=== PATIENT | male | born 1945 | race Caucasian/White ===

== ENCOUNTER 2016-07-03 10:07 | Outpatient (CLI) | payer MEDICARE | END 2016-07-03 10:08 | disposition home or self-care (01) | DX: M50.30 Other cervical disc degeneration, unspecified cervical region (principal); M51.34 Other intervertebral disc degeneration, thoracic region; M47.892 Other spondylosis, cervical region ==

== ENCOUNTER 2016-07-18 15:43 | Outpatient (CLI) | payer MEDICARE | END 2016-07-18 15:44 | disposition home or self-care (01) | DX: M25.511 Pain in right shoulder (principal) ==

== ENCOUNTER 2016-10-05 13:52 | Emergency (ER) | payer MEDICARE ==
[2016-10-05 14:09] VITALS: BP 141/81
--- NOTE | 2016-10-05 16:15 | ED Physician Documentation ---
PD HPI BACK INJURY - Stated complaint Stated Complaint: BACK PX - History obtained from History obtained from: Patient - History of Present Illness Location: Left, Lower Type of injury: Twist (has been having some pain in low back and then when golfing felt an abrupt pain in the low back, with pain down left leg. Feeling of numbness in left lateral thigh down to anterolateral lower leg. No persistent weakness. He says his leg gave out once due to pain in back. No urinary symptoms. Talked with PMD on phone and referred to ED for MRI.) Timing - onset: How many days ago (few) Timing - duration: Days (few) Timing - details: Abrupt onset, Still present, Waxing and waning Quality: Pain, Spasm Associated symptoms: Numbness (single nerve distribution left thigh.). No: Fever, Weakness Similar symptoms before: Diagnosis (had similar on right years ago with discectomy done and improved symptoms completely.) Recently seen: Not recently seen Review of Systems Constitutional: denies: Fever, Chills Cardiac: denies: Chest pain / pressure, Palpitations Respiratory: denies: Dyspnea, Cough GI: denies: Abdominal Pain : denies: Dysuria, Frequency, Incontinent Skin: denies: Rash, Lesions Neurologic: reports: Numbness. denies: Focal weakness PD PAST MEDICAL HISTORY - Past Medical History Cardiovascular: None Musculoskeletal: Other (prior lumbar discectomy due to symptoms on the right. No ongoing symptoms. ) - Present Medications Home Medications: Ambulatory Orders Medication Instructions Recorded Confirmed Dexamethasone [Decadron] 4 mg PO DAILY #5 tablet 10/05/16 Methocarbamol [Robaxin] 500 mg PO Q6H PRN #25 tablet 10/05/16 - Allergies Allergies/Adverse Reactions: Allergies Allergy/AdvReac Type Severity Reaction Status Date / Time No Known Drug Allergies Allergy Verified 10/05/16 14:09 PD ED PE NORMAL - Vitals Vital signs reviewed: Yes - General General: Alert and oriented X 3, No acute distress, Well developed/nourished - Cardiac Cardiac: RRR, No murmur - Respiratory Respiratory: Clear bilaterally - Abdomen Abdomen: Soft, Non tender - Back Back: No CVA TTP, No spinal TTP (tender left lateral muscle in lower lumbar. ) - Derm Derm: Normal color, Warm and dry - Extremities Extremities: No tenderness to palpate, Normal ROM s pain - Neuro Neuro: Alert and oriented X 3, No motor deficit (dermatomal tsting in leg is nromal motor including dorsi and plantar flexion of foot. 2+ DTRs at knees. He has less sensation to touch lateral thigh and anterolateral lower leg to top of foot. He can tell sharp from dull there. ), Normal speech - Psych Psych: Normal mood, Normal affect Results - Vitals Vitals: Oxygen O2 Source Room air PD MEDICAL DECISION MAKING - ED course Complexity details: considered differential (Reportedly sent to ED by PMD for MRI due to back pain. He has single nerve distribution numbness but no weakness (he says his leg gave out once due to pain in back, but has normal motor exam and knee DTR at this time) and no caudal symptoms. MRI not available currently if were to want elective study. He does not really have indication for emergent study and so I don't see need for transfer. He can see PMD Saturday for further meds/PT. PMD can decide at that time if wants outpt study. ), d/w patient Departure - Departure Disposition: Home, Self Care Clinical Impression: Back pain Qualifiers: Back pain location: low back pain Chronicity: acute Back pain laterality: left Sciatica presence: with sciatica Sciatica laterality: sciatica of left side Qualified Code(s): M54.42 - Lumbago with sciatica, left side Condition: Stable Record reviewed to determine appropriate education?: Yes Instructions: ED Sciatica Follow-Up: Bam Ko MD [Primary Care Provider] - Prescriptions: Dexamethasone [Decadron] 4 mg PO DAILY #5 tablet Methocarbamol [Robaxin] 500 mg PO Q6H PRN #25 tablet PRN Reason: Spasms Comments: It does sound like there is some impingement on 1 of the lumbar nerves. However it does not necessarily need an emergent MRI. We would try some anti- inflammatories, muscle relaxants, pain medicine for several days. Follow-up with Dr. Ko Saturday as planned. He might be able to arrange an outpatient MRI on an urgent basis. Medications and physical therapy are often first-line treatment and see if things improve. Return if worsening pain, more general area of numbness or weakness, bowel or bladder difficulties, other concerns. Discharge Date/Time: 10/05/16 17:28
[2016-10-05] MEDS ORDERED: METHOCARBAMOL 500 MG TABLET PO STA (17:00)
[2016-10-05] MEDS ORDERED: oxyCOD/ACETAMIN 5 MG/325 MG TABLET PO STA (17:00)
[2016-10-05] MEDS ORDERED: DEXAMETHASONE 10 MG/ML VIAL PO STA (17:00)
[2016-10-05] MEDS ORDERED: oxyCOD/ACETAMIN 5 MG/325 MG TABLET PO ONE (17:11)
[2016-10-05] MEDS ORDERED: DEXAMETHASONE 10 MG/ML VIAL ONE (17:11)
[2016-10-05] MEDS ORDERED: METHOCARBAMOL 500 MG TABLET PO ONE (17:12)
[2016-10-05] MEDS ORDERED: CHERRY SYRUP 10 ML UDC PO ONE (17:12)
== END 2016-10-05 17:28 | disposition home or self-care (01) ==
LOC: ED 13:52
DX: M54.42 Lumbago with sciatica, left side (principal)
CPT/HCPCS: 99283; A9270

== ENCOUNTER 2016-10-13 14:43 | Outpatient (CLI) | payer MEDICARE ==
--- NOTE | 2016-10-15 09:58 | MRI Report ---
EXAM: MRI LUMBAR SPINE WITHOUT CONTRAST EXAM DATE: 10/13/2016 03:19 PM. CLINICAL HISTORY: Lumbar radiculopathy. Patient is an avid golfer. "Tweaked lumbar spine" one week ag o. Pain radiating into the left leg. History of surgery 10 years ago, L4-L5? COMPARISON: Lumbar spine plain films 10/31/2015. TECHNIQUE: Multiplanar, multisequence T1-weighted and fluid-sensitive sequences of the lumbar spine f rom T12 to S1 without contrast. Other: None. FINDINGS: Spinal Cord: The conus terminates at L1. The conus medullaris is unremarkable. Crowding of cauda equi na nerve roots is seen in the mid lumbar thecal sac. Alignment: Normal. No scoliosis or spondylolisthesis. Bone Marrow: Five [id number] lumbar vertebral bodies are assumed. No gross fractures or bone les ions. No bone marrow edema. Note is made of hemangioma anteriorly in the L1 vertebral body. Disk Levels/Facets: T12-L1: Unremarkable on sagittal series. Mild anterior osteophyte formation. L1-L2: Evaluated on sagittal series. Patchy diskogenic endplate signal change is seen posteriorly in the L2 superior endplate. Mild anterior osteophyte formation is seen. No stenosis. L2-L3: Minimal loss of disk space height is seen. Mild lateral and ventral disk bulge is seen. Mild a nterior osteophyte formation is seen. No stenosis. L3-L4: Mild degenerative facet change is seen bilaterally. T2 hypointense disk signal is seen. Mild c ircumferential disk bulge is seen. Lobular left paracentral disk herniation with inferior extrusion i s seen. This measures up to 16 x 7 x 12 mm. This fills the left L4 lateral recess and extends to the superior foramen, with marked stenosis and mass effect on descending left L4 nerve root. Effacement o f the thecal sac with crowding of cauda equina nerve roots is seen. Mild canal stenosis is present. L4-L5: Postoperative change from right-sided laminectomy and partial facetectomy is seen. Moderate de generative facet change is seen bilaterally. Mild loss of disk space height is seen. Mild circumferen tial disk bulge is noted. Effacement of the thecal sac is seen without canal stenosis. Mild effacemen t of descending right L5 nerve root is seen with mild right lateral recess stenosis. L5-S1: Mild degenerative facet change is seen. Moderate loss of disk space height is seen. Mild to mo derate lateral protrusion of disk/osteophyte complex is seen bilaterally. No stenosis. Musculature: Normal. No edema or fatty atrophy. Other: The partially visualized retroperitoneum is unremarkable. IMPRESSION: 1. Spondylosis throughout the lumbar spine. 2. L3-L4: Left paracentral disk herniation with inferior extrusion. Marked left lateral recess stenos is is seen with mass effect on descending left L4 nerve root. Mild canal stenosis. 2. L4-L5: Postoperative change from right-sided laminectomy. Spondylosis. Right mild lateral recess s tenosis with mass effect on descending right L5 nerve root. Comment: The following findings are so common in adults without low back pain that while we report th eir presence, they must be interpreted with caution and in the context of the clinical situation. (Re madai Roa et al, Spine 2001) Prevalence of findings in patients without low back pain: Disk degeneration (any evidence): 92% Disk desiccation/T2 signal loss: 83% Disk height loss: 56% Disk bulge: 64% Disk protrusion: 32% Annular tear/high intensity zone: 38% [facility] Referring Provider Line: [phone] SITE ID: [id number]
== END 2016-10-13 14:44 | disposition home or self-care (01) ==
LOC: DI 14:43
PROVIDERS: ATTEND Internal Medicine
DX: M51.36 Other intervertebral disc degeneration, lumbar region (principal); M51.26 Other intervertebral disc displacement, lumbar region; M47.896 Other spondylosis, lumbar region; M48.06 Spinal stenosis, lumbar region
CPT/HCPCS: 72148

== ENCOUNTER 2016-10-17 09:36 | Outpatient (CLI) | payer MEDICARE ==
[2016-10-17 19:00] LABS: CHOL/HDL RATIO 4.4 (<5.0); CHOLESTEROL 210 mg/dL; GLUCOSE 113 mg/dL (70-100); HDL CHOLESTEROL 48 mg/dL; LDL/HDL RATIO 2.7 (<3.6); TRIGLYCERIDES 170 mg/dL; VLDL CHOLESTEROL 34 mg/dL
== END 2016-10-17 09:37 | disposition home or self-care (01) ==
LOC: LAB.F 09:36
PROVIDERS: ATTEND Internal Medicine
DX: R10.9 Unspecified abdominal pain (principal); M54.9 Dorsalgia, unspecified; R07.9 Chest pain, unspecified; K21.9 Gastro-esophageal reflux disease without esophagitis; S92.009 Unspecified fracture of unspecified calcaneus; M25.552 Pain in left hip; M25.551 Pain in right hip; R73.01 Impaired fasting glucose; N52.9 Male erectile dysfunction, unspecified; R86.9 Unspecified abnormal finding in specimens from male genital organs; Z86.010 Personal history of colon polyps; N50.82 Scrotal pain; Z12.11 Encounter for screening for malignant neoplasm of colon
CPT/HCPCS: 36415; 80061; 82947

== ENCOUNTER 2016-12-07 12:57 | Outpatient (CLI) | payer MEDICARE ==
--- NOTE | 2016-12-07 15:31 | Ultrasound Report ---
LEFT LEG VENOUS DUPLEX: 12/07/2016 CLINICAL INDICATION: Pain in left leg. TECHNIQUE: Real-time sonographic vascular imaging was performed by the health analyst through the left l ower extremity utilizing both color flow and Doppler spectral analysis. Multiple technical sales representative stati c images were saved for review. FINDINGS: A left lower extremity venous sonogram is performed revealing the common femoral, superfici al femoral, profunda femoris, and popliteal veins to be adequately visualized without intraluminal de fects. There is normal venous compression, augmentation, phasicity, and spontaneity of venous flow. I n the calf, the visualized more cephalad portions of posterior tibial and peroneal veins are grossly compressible, without filling defects. Incidental note is made of a small Teran's cyst in the left po pliteal fossa. IMPRESSION: NO EVIDENCE OF DEEP VENOUS THROMBOSIS. JOB #: [id number] EXT JOB #:[id number]
== END 2016-12-07 12:58 | disposition home or self-care (01) ==
LOC: DI 12:57
PROVIDERS: ATTEND Internal Medicine
DX: M79.605 Pain in left leg (principal); I49.9 Cardiac arrhythmia, unspecified
CPT/HCPCS: 93005

== ENCOUNTER 2017-10-21 08:07 | Outpatient (CLI) | payer MEDICARE ==
[2017-10-21 12:20] LABS: CHOLESTEROL 244 mg/dL; GLUCOSE,FASTING 133 mg/dL (70-100); HDL CHOLESTEROL 61 mg/dL; LDL CHOLESTEROL,CALCULATED 153 mg/dL; LDL/HDL RATIO 2.5 (<3.6); VLDL CHOLESTEROL 30 mg/dL
== END 2017-10-21 08:08 | disposition home or self-care (01) ==
LOC: LAB.F 08:07
PROVIDERS: ATTEND Internal Medicine
DX: E78.5 Hyperlipidemia, unspecified (principal); R73.01 Impaired fasting glucose
CPT/HCPCS: 36415; 80061; 82947; 83721

== ENCOUNTER 2017-12-20 09:55 | Outpatient (CLI) | payer MEDICARE ==
[2017-12-20 20:07] LABS: HEMOGLOBIN A1C 0.6 g/dL; HEMOGLOBIN A1C % 5.6 % (4.6-6.2)
== END 2017-12-20 09:56 | disposition home or self-care (01) ==
LOC: LAB.F 09:55
PROVIDERS: ATTEND Internal Medicine
DX: M71.20 Synovial cyst of popliteal space [Baker], unspecified knee (principal); N52.9 Male erectile dysfunction, unspecified; K21.9 Gastro-esophageal reflux disease without esophagitis; I49.9 Cardiac arrhythmia, unspecified; E78.5 Hyperlipidemia, unspecified; M79.605 Pain in left leg; Z00.00 Encounter for general adult medical examination without abnormal findings
CPT/HCPCS: 36415; 82947; 83036

== ENCOUNTER 2018-10-22 09:29 | Outpatient (CLI) | payer MEDICARE ==
[2018-10-22 18:05] LABS: CHOL/HDL RATIO 2.7 (<5.0); CHOLESTEROL 200 mg/dL; GLUCOSE 121 mg/dL (70-100); HDL CHOLESTEROL 74 mg/dL; LDL CHOLESTEROL,CALCULATED 115 mg/dL; LDL/HDL RATIO 1.6 (<3.6); VLDL CHOLESTEROL 11 mg/dL
[2018-10-23 13:11] LABS: HEPATITIS C ANTIBODY NON-REACTIVE (NON-REACTIVE)
== END 2018-10-22 09:30 | disposition home or self-care (01) ==
LOC: LAB.S 09:29
PROVIDERS: ATTEND Internal Medicine
DX: Z00.00 Encounter for general adult medical examination without abnormal findings (principal); M19.90 Unspecified osteoarthritis, unspecified site; K22.70 Barrett's esophagus without dysplasia; N52.9 Male erectile dysfunction, unspecified; K21.9 Gastro-esophageal reflux disease without esophagitis; M25.552 Pain in left hip; M25.551 Pain in right hip; E78.5 Hyperlipidemia, unspecified; R73.01 Impaired fasting glucose; M79.605 Pain in left leg; Z86.010 Personal history of colon polyps; Z11.59 Encounter for screening for other viral diseases
CPT/HCPCS: 36415; 80061; 82947; 83721; 86803

== ENCOUNTER 2019-10-23 08:04 | Outpatient (CLI) | payer MEDICARE | END 2019-10-23 08:05 | disposition home or self-care (01) | LOC: LAB.S 08:04 | PROVIDERS: ATTEND Internal Medicine | DX: R73.01 Impaired fasting glucose (principal) | CPT/HCPCS: 36415; 82947 ==

== ENCOUNTER 2020-01-04 11:09 | Outpatient (CLI) | payer MEDICARE | END 2020-01-04 11:10 | disposition home or self-care (01) | LOC: COV 11:09 | PROVIDERS: ATTEND Ophthalmology | DX: Z01.812 Encounter for preprocedural laboratory examination (principal); H25.12 Age-related nuclear cataract, left eye; Z20.828 Contact with and (suspected) exposure to other viral communicable diseases ==

== ENCOUNTER 2020-01-07 08:08 | Day surgery (SDC) | payer MEDICARE ==
[~2020-01-07 08:08] MED LIST: KETOROLAC 0.45% OPHTH DROPS ONE; PHENYLEPHRINE 2.5% OPHTH 2 ML DROPS ONE; PROPARACAINE 0.5% OPHTH DROPS 15 ML ONE
[2020-01-07] MEDS ORDERED: TRIAMCIN/MOXIFLOX OPHTHALMIC 0.6 ML VIAL IO ONE ×2 (08:32→09:39)
[2020-01-07] MEDS ORDERED: VANCOMYCIN OPHTHALMI 8MG/0.8ML 8 MG/0.8 ML SYRINGE IO ONE ×2 (08:32→09:40)
[2020-01-07] MEDS ORDERED: BSS/LIDOCAINE/EPINEPHRINE 1 ML SYRINGE ONE (08:32)
[2020-01-07] MEDS ORDERED: BRIMONIDINE 0.2% OPHTH DROPS 5 ML ONE (08:32)
[2020-01-07] MEDS ORDERED: EPINEPHrine 1 MG/ML AMP ONE (08:32)
[2020-01-07] MEDS ORDERED: TIMOLOL 0.5% OPHTH DROPS ONE (08:32)
[2020-01-07] MEDS ORDERED: LACTATED RINGERS 500 ML IV ONE ×2 (08:40→09:54)
--- NOTE | 2020-01-07 09:11 | ANESTHESIA ---
Pre-Anesthesia VS, & Labs - Diagnosis L senile combined cataract - Procedure L extraction cataract w/IOL Vital Signs: Temp Pulse Resp BP Pulse Ox 36.4 C L 55 L 16 170/86 H 98 01/07/20 08:30 01/07/20 08:30 01/07/20 08:30 01/07/20 08:30 01/07/20 08:30 Height: 6 ft 2 in Weight (kg): 100.6 kg Body Mass Index: 28.5 BMI Classification: Overweight - NPO >8 hours - Lab Results Lab results reviewed: Yes Home Medications and Allergies Home Medications: Ambulatory Orders Omeprazole 20 mg PO 01/06/20 Sildenafil Citrate [Viagra] 25 mg PO 01/06/20 Omeprazole 20 mg PO 01/06/20 Sildenafil Citrate [Viagra] 25 mg PO 01/06/20 Allergies/Adverse Reactions: Allergies Allergy/AdvReac Type Severity Reaction Status Date / Time No Known Drug Allergies Allergy Verified 10/05/16 14:09 Anes History & Medical History - Anesthetic History Anesthesia Complications: reports: No previous complications Family history of Anesthesia Complications: Denies Family history of Malignant Hyperthermia: Denies - Medical History Cardiovascular: reports: None, Other (uneventful cardiac workup 3 years ago for "skipping beats') Pulmonary: reports: None Gastrointestinal: reports: None Urinary: reports: None Musculoskeletal: reports: None Endocrine/Autoimmune: reports: None Skin: reports: None Smoking Status: Never smoker - Surgical History General: Appendectomy Eyes Ears Nose Throat (EENT): Tonsil/Adenoidectomy Neurologic: Other Orthopedic: Other (ankle reconstruction, Bakers cyst) Exam General: Alert, Oriented x3, Cooperative Dental: WNL Mouth Opening: Greater than 4 Fingerbreadths Neck Mobility: Normal Mallampati classification: I Thyromental Distance: greater than 6 cm Respiratory: Lungs clear, Normal breath sounds, No respiratory distress Cardiovascular: Regular rate Neurological: Normal speech Mental/Cognitive Status: Alert/Oriented X3, Normal for patient Cognitive Status: Within normal limits Plan Anesthesia Type: MAC Consent for Procedure(s) Verified and Reviewed: Yes Code Status: Attempt Resuscitation ASA classification: 2-Mild systemic disease Is this case an emergency?: No
[2020-01-07] MEDS ORDERED: MIDAZOLAM 2 MG/2 ML VIAL IVP ONE ×2 (09:33)
[2020-01-07] MEDS ORDERED: BRIMONIDINE 0.2% OPHTH DROPS 5 ML OPTH ONE (09:37)
[2020-01-07] MEDS ORDERED: EPINEPHrine 1 MG/ML AMP IR ONE (09:37)
[2020-01-07] MEDS ORDERED: CHONDR SULF/HYALURONATE SYRINGE IO ONE (09:38)
[2020-01-07] MEDS ORDERED: TIMOLOL 0.5% OPHTH DROPS OPTH ONE (09:38)
[2020-01-07] MEDS ORDERED: BSS/LIDOCAINE/EPINEPHRINE 1 ML SYRINGE IO ONE (09:39)
[2020-01-07] MEDS ORDERED: PROPARACAINE 0.5% OPHTH DROPS 15 ML EACHEYE ONE (09:40)
[2020-01-07 10:20] VITALS: BP 128/76
--- NOTE | 2020-01-07 12:34 | OPERATIVE REPORT ---
DATE OF SERVICE: 01/07/2020 Physician: Robert Irvin MD PREOPERATIVE DIAGNOSIS: Visually significant cataract, left eye. This was his first cataract surger y. POSTOPERATIVE DIAGNOSIS: Visually significant cataract, left eye. This was his first cataract surge ry. PROCEDURE: Phacoemulsification with posterior chamber intraocular lens implant, left eye. SURGEON: Robert Irvin MD ANESTHESIA: Monitored anesthesia care. COMPLICATIONS: None. OPERATIVE INDICATIONS: This is a 74-year-old man with progressive vision loss in the left eye due to 2+ nuclear sclerotic and 2-3+ cortical cataract. Best corrected visual acuity was 20/25, with glare to hand motion vision in the left eye. Indications for surgery are overall decrease in vision, diff iculty seeing words on a computer screen and difficulty seeing words, closed caption or game scores o n TV. He was consented at length concerning risks and benefits of cataract surgery, after which he e xpressed a desire to proceed with surgery. OPERATIVE PROCEDURE: The patient's left cornea was first marked in the PACU with a Gordon corneal mar ker to indicate an axis of 100 to align the toric IOL once implanted. The patient was then taken int o OR #3 and placed under monitored anesthesia care. A surgical timeout was conducted confirming suhas ect patient, correct procedure, and correct surgical site. He was given topical anesthesia and then prepped and draped in the usual sterile fashion. The eye was entered at the 6 and 3 o'clock position s. Intracameral Shugarcaine was injected into the anterior chamber, followed by Viscoat. A continuo us-tear curvilinear capsulorrhexis was performed. The nucleus was hydrodissected and phacoemulsified . The cortex was evacuated using automated infusion and aspiration. Provisc was injected in the cap sular bag, and a 20.5 diopter toric intraocular lens was inserted into the bag and rotated to axis 10 0 as marked on the cornea. Infusion and aspiration was used to evacuate the viscoelastic materials. The eye was inflated to physiologic pressure using balanced salt solution and found to be watertight . Again, axis 100 verified. Approximately 0.25 mL of a mixture of triamcinolone and moxifloxacin wa s injected transsclerally into the vitreous and inferotemporal quadrant. An additional 0.55 mL of a mixture of triamcinolone, moxifloxacin, and vancomycin was injected subconjunctivally in the superior quadrant for infection and inflammation prophylaxis. Wound integrity was checked with Weck-Eliza spon ges and the axis of the lens was verified one more time to be 100. The patient was taken from the Op erating Room in good condition and given postoperative instructions. TD: 01/07/2020 10:09
== END 2020-01-07 08:09 | disposition home or self-care (01) ==
LOC: SDS 08:08
PROVIDERS: ATTEND Ophthalmology
DX: H25.12 Age-related nuclear cataract, left eye (principal)
CPT/HCPCS: 66984; A9270; J3490; J7120; V2632

== ENCOUNTER 2020-02-05 16:37 | Outpatient (CLI) | payer MEDICARE | END 2020-02-05 16:38 | disposition home or self-care (01) | LOC: COV 16:37 | PROVIDERS: ATTEND Ophthalmology | DX: Z01.812 Encounter for preprocedural laboratory examination (principal); H25.11 Age-related nuclear cataract, right eye; Z20.828 Contact with and (suspected) exposure to other viral communicable diseases ==

== ENCOUNTER 2020-02-11 07:27 | Day surgery (SDC) | payer MEDICARE ==
[2020-02-11] MEDS ORDERED: KETOROLAC 0.45% OPHTH DROPS ONE (07:33)
[2020-02-11] MEDS ORDERED: PHENYLEPHRINE 2.5% OPHTH 2 ML DROPS ONE (07:33)
[2020-02-11] MEDS ORDERED: PROPARACAINE 0.5% OPHTH DROPS 15 ML ONE (07:33)
[2020-02-11] MEDS ORDERED: LACTATED RINGERS 500 ML IV ONE ×2 (07:49→08:51)
--- NOTE | 2020-02-11 08:04 | ANESTHESIA ---
Pre-Anesthesia VS, & Labs - Diagnosis Right Cataract - Procedure Right PHACO/IOL implant Vital Signs: Temp Pulse Resp BP Pulse Ox 36.4 C L 74 18 154/75 H 98 02/11/20 07:43 02/11/20 07:43 02/11/20 07:43 02/11/20 07:43 02/11/20 07:43 Height: 6 ft Weight (kg): 102.4 kg Body Mass Index: 30.6 BMI Classification: Obese - NPO >8 hours Home Medications and Allergies Omeprazole 20 mg PO DAILY 01/06/20 Sildenafil Citrate [Viagra] 25 mg PO DAILY 01/06/20 Allergies/Adverse Reactions: Allergies Allergy/AdvReac Type Severity Reaction Status Date / Time No Known Drug Allergies Allergy Verified 10/05/16 14:09 Anes History & Medical History - Anesthetic History Anesthesia Complications: reports: No previous complications Family history of Anesthesia Complications: Denies Family history of Malignant Hyperthermia: Denies - Medical History Cardiovascular: reports: None Pulmonary: reports: None Gastrointestinal: reports: GERD (Well controlled), Hiatal hernia Urinary: reports: None Musculoskeletal: reports: None Endocrine/Autoimmune: reports: None Skin: reports: None Smoking Status: Never smoker History of Cancer?: No - Surgical History General: Appendectomy Eyes Ears Nose Throat (EENT): Cataracts, Tonsil/Adenoidectomy Orthopedic: Other Exam General: Alert, Oriented x3, Cooperative, No acute distress Dental: WNL Neck Mobility: Limited Mallampati classification: I Thyromental Distance: 4-6 cm Respiratory: Lungs clear Cardiovascular: Regular rate, Normal S1, Normal S2, No murmurs Mental/Cognitive Status: Alert/Oriented X3 Plan Anesthesia Type: MAC Consent for Procedure(s) Verified and Reviewed: Yes Code Status: Attempt Resuscitation ASA classification: 2-Mild systemic disease Is this case an emergency?: No (Discussed anesthesia. Consent signed.)
[2020-02-11] MEDS ORDERED: fentaNYL 100 MCG/2 ML VIAL IVP ONE (08:24)
[2020-02-11] MEDS ORDERED: MIDAZOLAM 2 MG/2 ML VIAL IVP ONE (08:24)
[2020-02-11] MEDS ORDERED: EPINEPHrine 1 MG/ML AMP IR ONE (08:29)
[2020-02-11] MEDS ORDERED: TRIAMCIN/MOXIFLOX OPHTHALMIC 0.6 ML VIAL IO ONE ×2 (08:29→10:43)
[2020-02-11] MEDS ORDERED: BRIMONIDINE 0.2% OPHTH DROPS 5 ML OPTH ONE (08:29)
[2020-02-11] MEDS ORDERED: BSS/LIDOCAINE/EPINEPHRINE 1 ML SYRINGE IO ONE (08:29)
[2020-02-11] MEDS ORDERED: TIMOLOL 0.5% OPHTH DROPS OPTH ONE (08:29)
[2020-02-11] MEDS ORDERED: PROPARACAINE 0.5% OPHTH DROPS 15 ML EACHEYE ONE (08:29)
[2020-02-11] MEDS ORDERED: CHONDR SULF/HYALURONATE SYRINGE IO ONE (08:29)
[2020-02-11] MEDS ORDERED: VANCOMYCIN OPHTHALMI 8MG/0.8ML 8 MG/0.8 ML SYRINGE IO ONE ×2 (08:29→10:44)
[2020-02-11 08:59] VITALS: BP 134/74
--- NOTE | 2020-02-11 09:45 | ANESTHESIA POST OP EVALUATION ---
Anesthesia Post Eval - Post Anesthesia Eval Vitals: Last Vital Signs Temp 36.9 C 02/11/20 08:44 Pulse 66 02/11/20 08:58 Resp 16 02/11/20 08:58 BP 134/74 H 02/11/20 08:58 Pulse Ox 96 02/11/20 08:58 CV Function Including HR & BP: positive: Stable Pain Control: positive: Satisfactory Nausea & Vomiting: positive: Negative Mental Status: positive: Baseline Respiratory Status: Airway Patent Hydration Status: Satisfactory Anesthesia Complications: positive: None (Discharged with no complaints)
[2020-02-11] MEDS ORDERED: TIMOLOL 0.5% OPHTH DROPS ONE (10:44)
[2020-02-11] MEDS ORDERED: EPINEPHrine 1 MG/ML AMP ONE (10:44)
[2020-02-11] MEDS ORDERED: BSS/LIDOCAINE/EPINEPHRINE 1 ML SYRINGE ONE (10:44)
[2020-02-11] MEDS ORDERED: BRIMONIDINE 0.2% OPHTH DROPS 5 ML ONE (10:44)
--- NOTE | 2020-02-11 13:49 | OPERATIVE REPORT ---
DATE OF SERVICE: 02/11/2020 Physician: Robert Irvin MD PREOPERATIVE DIAGNOSIS: Visually significant cataract, right eye, complicated by a poorly dilating p upil requiring Malyugin ring for mechanical pupil expansion. Cataract surgery was performed on the l eft eye on 01/07/2020. POSTOPERATIVE DIAGNOSIS: Visually significant cataract, right eye, complicated by a poorly dilating pupil requiring Malyugin ring for mechanical pupil expansion. Cataract surgery was performed on the left eye on 01/07/2020. PROCEDURE PERFORMED: Phacoemulsification with posterior chamber intraocular lens implant, right eye. SURGEON: Robert Irvin MD. ANESTHESIA: Monitored anesthesia care. COMPLICATIONS: None. OPERATIVE INDICATIONS: This is a 74-year-old man with progressive vision loss in the right eye due t o 2+ nuclear sclerotic and 2-3+ cortical cataract. Best corrected visual acuity was 20/25, with glar e to 20/800 in the right eye. Indications for surgery are overall decrease in vision, difficulty see ing words on a computer screen, difficulty reading, difficulty with glare or bright lights in any sit uation, and difficulty tracking a golf ball. He was consented at length concerning risks and benefit s of cataract surgery, after which he expressed a desire to proceed with surgery. Also his cornea wa s marked with a Gordon marker in the PACU prior to going to the OR to collin axis 073 for the toric intr aocular lens. OPERATIVE PROCEDURE: The patient was taken to OR #3 and placed under monitored anesthesia care. A kinsey rgical timeout was conducted confirming correct patient, correct procedure, and correct surgical site . He was given topical anesthesia, and prepped and draped in the usual sterile fashion. The eye was entered at 12, and 9 o'clock positions. Intracameral Shugarcaine was injected into the anterior atul mber, followed by Viscoat. A Malyugin ring was then injected into the anterior chamber and engaged with the pupil margin at 4 points to expand the pupil. A continuous-tear curvilinear capsulorrhexis was performed. The nucleus was hydrodissected and phacoemulsified. The cortex was evacuated using a utomated infusion and aspiration. Provisc was injected in the capsular bag, and a 20.5 toric intraoc ular lens was injected into the bag and rotated to axis 073. The Malyugin ring was then disengaged f rom the pupil margin and removed from the anterior chamber. The IOL was verified to be still at 073. Infusion and aspiration was used to evacuate the viscoelastic materials and once again the IOL veri fied to be close to axis 073. The eye was inflated to physiologic pressure using balanced salt solut ion and found to be watertight. Approximately 0.25 mL of a mixture of triamcinolone and moxifloxacin was injected transsclerally into the vitreous in the inferotemporal quadrant. An additional 0.55 mL of a mixture of triamcinolone, moxifloxacin, and vancomycin was injected subconjunctivally in the kinsey perior quadrant for infection and inflammation prophylaxis. Wound integrity was checked with Weck-Ce l sponges. The final toric axis check could not be performed since the pupil had come down and cover ed the IOL toric markers. The patient was taken from the operating room in good condition and given postoperative instructions. TD: 02/11/2020 09:00
== END 2020-02-11 07:28 | disposition home or self-care (01) ==
LOC: SDS 07:27
PROVIDERS: ATTEND Ophthalmology
DX: H25.11 Age-related nuclear cataract, right eye (principal); Z87.891 Personal history of nicotine dependence; Z98.42 Cataract extraction status, left eye; E66.9 Obesity, unspecified; Z68.30 Body mass index [BMI] 30.0-30.9, adult
CPT/HCPCS: 66982; A9270; J3490; J7120; V2632

== ENCOUNTER 2020-09-09 08:00 | Outpatient (CLI) | payer MEDICARE ==
--- NOTE | 2020-09-09 23:48 | XRAY Report ---
PROCEDURE: Hand 3 View LT INDICATIONS: LEFT FINGER PAIN TECHNIQUE: 3 views of the hand(s) acquired. COMPARISON: None FINDINGS: Bones: Distal tuft fracture of distal phalanx of fourth finger. No suspicious bony lesions. Soft tissues: No suspicious soft tissue calcifications. Lacerations of the distal aspects of the thi rd and fourth fingers with associated fourth digit distal phalanx distal tuft fracture. No radiopaque foreign body. IMPRESSION: Distal tuft fracture of distal phalanx of fourth digit, soft tissue lacerations of the tips of the th ird and fourth digits, no radiopaque foreign body. Reviewed by: Robert Rosen MD on 09/09/2020 10:47 PM [facility] Approved by: Robert Rosen MD on 09/09/2020 10:47 PM [facility] Station ID: [id number]
== END 2020-09-09 23:59 | disposition home or self-care (01) ==
LOC: DI.S 08:00
PROVIDERS: ATTEND Physician Assistant
DX: S62.665A Nondisplaced fracture of distal phalanx of left ring finger, initial encounter for closed fracture (principal)

== ENCOUNTER 2020-10-28 10:06 | Outpatient (CLI) | payer MEDICARE ==
[2020-10-28 14:46] LABS: CHOL/HDL RATIO 3.1 (<5.0); CHOLESTEROL 226 mg/dL; HDL CHOLESTEROL 72 mg/dL; LDL CHOLESTEROL,CALCULATED 134 mg/dL; LDL/HDL RATIO 1.9 (<3.6); TRIGLYCERIDES 99 mg/dL; VLDL CHOLESTEROL 20 mg/dL
[2020-10-28 17:24] LABS: ESTIMATED AVERAGE GLUCOSE 117 mg/dL (70-100); HEMOGLOBIN A1c% 5.7 % (4.27-6.07)
== END 2020-10-28 10:07 | disposition home or self-care (01) ==
LOC: LAB.S 10:06
PROVIDERS: ATTEND Internal Medicine
DX: E78.5 Hyperlipidemia, unspecified (principal); R73.01 Impaired fasting glucose
CPT/HCPCS: 36415; 80061; 83036; 83721

== ENCOUNTER 2022-11-06 11:39 | Outpatient (CLI) | payer MEDICARE ==
[2022-11-06 20:53] LABS: ESTIMATED AVERAGE GLUCOSE 114 mg/dL (70-100); HEMOGLOBIN A1c% 5.6 % (4.27-6.07)
== END 2022-11-06 11:40 | disposition home or self-care (01) ==
LOC: LAB.S 11:39
PROVIDERS: ATTEND Internal Medicine
DX: Z13.1 Encounter for screening for diabetes mellitus (principal)
CPT/HCPCS: 36415; 83036